=== PATIENT | male | born 1975 | race Caucasian/White ===

== ENCOUNTER → 2018-07-30 | Outpatient (CLI) | payer OTHER ==
--- NOTE | 2018-07-30 09:51 | RAD ---
TESTICULAR/SCROTUM History: Right testicular swelling Comparison: None. Findings: Multiple sonographic images of the testicles and scrotum are submitted to include grayscale, color, spectral analysis waveform images. Right testicle measured 4.8 x 2.8 x 2.3 cm. Left testicle measured 4.7 x 3.1 x 2.4 cm. No intratesticular mass is demonstrated on either side. There is normal low resistance vascularity of interrogated intratesticular vessels bilaterally. There are small hydroceles bilaterally. No asymmetric hypervascularity is demonstrated. Impression: 1. There are small hydroceles bilaterally. There is no evidence of testicular torsion or intratesticular mass. Electronically signed by: Naldo Alex MD (07/30/2018 9:48 AM) [id number]
== END | disposition home or self-care (01) ==
LOC: US 07:13
PROVIDERS: ATTEND Internal Medicine
DX: N43.3 Hydrocele, unspecified (principal)
CPT/HCPCS: 76870

== ENCOUNTER 2019-08-20 20:19 | Emergency (ER) | payer OTHER ==
[~2019-08-20] VITALS: Ht 177.8 cm; Wt 117.9 kg
[2019-08-20] MEDS ORDERED: DIPH,PERTUSS(ACELL),TET VAC/PF 0.5 ML SYRINGE. VAX IM ONE ×2 (22:42→22:45)
--- NOTE | 2019-08-20 22:53 | PHYS DOC ---
Past Medical History Past Medical History: No Pertinent History Past Surgical History: No Surgical History Smoking Status: Current Every Day Smoker Alcohol Use: Occasionally General Adult EDM: Chief Complaint: FINGER INJURY HPI: HPI: Patient is a 44 year old male who presents with injury to his left index finger. Patient states that he was cutting with his pocket knife when he accidentally cut the dorsal aspect of his left index finger. Patient states that initially it bled quite a bit. He states that he ran it under cold water for a while and then used peroxide on it and then cleaned it up and then apply pressure to the wound. Patient states that after applying pressure he has had no further bleeding. He states that he has minimal pain and has full sensation distal to the wound. He indicates that his last tetanus shot was around 9 years ago.[] Review of Systems: Review of Systems: Constitutional: Denies fever or chills. [] Respiratory: Denies cough or shortness of breath. [] Cardiovascular: Denies chest pain or edema. [] Musculoskeletal: Positive laceration. [] Heart Score: Risk Factors: Risk Factors: DM, Current or recent (<one month) smoker, HTN, HLP, family history of CAD, obesity. Risk Scores: Score 0 - 3: 2.5% MACE over next 6 weeks - Discharge Home Score 4 - 6: 20.3% MACE over next 6 weeks - Admit for Clinical Observation Score 7 - 10: 72.7% MACE over next 6 weeks - Early Invasive Strategies Current Medications: Current Medications Medications (Trade) Dose Ordered Sig/Jade Start Time Stop Time Status Last Admin Dose Admin Diphtheria/ Tetanus/Acell Pertussis (ADACEL TDap SYRINGE) 0.5 ml ONCE ONCE 08/20/19 22:45 08/20/19 22:46 UNV 08/20/19 22:45 0.5 ML Physical Exam: PE: Constitutional: Well developed, well nourished, no acute distress, non-toxic appearance. [] Cardiovascular: Regular rate and rhythm[] Lungs & Thorax: Bilateral breath sounds clear to auscultation [] Skin: There is a 1.5 cm linear laceration noted to the dorsal aspect of the left index finger at the PIP region. No active bleeding is noted. Finger is neurovascularly intact distal to the wound. [] Current Patient Data: Vital Signs: Vital Signs Date Time Temp Pulse Resp B/P (MAP) Pulse Ox O2 Delivery O2 Flow Rate FiO2 08/20/19 21:00 97.7 87 16 97 Room Air 97.7 EKG: EKG: [] Radiology/Procedures: Radiology/Procedures: [] Course & Med Decision Making: Course & Med Decision Making Pertinent Labs and Imaging studies reviewed. (See chart for details) Laceration Repair by me: Anesthesia: None Location: Dorsal aspect of left index finger Tendon/Joint/Nerves: No injury Foreign body: None detected after copious irrigation and exploration Technique: Dermabond utilized for wound closure Complexity: No subcutaneous sutures/mucosal repair/edge excision Post Closure Length: 1.5 cm Patient's bleeding was easily controlled in the department and there is no indication of anemia. No evidence of compartment syndrome, neurologic injury, vascular injury, open joint, tendon laceration, or foreign body. Patient is appropriate for outpatient follow up. Finger was placed in aluminum finger splint for stability of wound. Dragon Disclaimer: Dragon Disclaimer: This electronic medical record was generated, in whole or in part, using a voice recognition dictation system. Departure Departure Impression: Primary Impression: Laceration of left index finger Qualified Codes: S61.211A - Laceration without foreign body of left index finger without damage to nail, initial encounter Disposition: HOME, SELF-CARE Condition: STABLE Referrals: PASQUALE DYE MD (PCP) Patient Instructions: Laceration Care, Adult JEANNE MENDEZ Jr. DO Aug 20, 2019 22:53
== END 2019-08-20 22:58 | disposition home or self-care (01) ==
LOC: ER 20:19
DX: S61.211A Laceration without foreign body of left index finger without damage to nail, initial encounter (principal); F17.200 Nicotine dependence, unspecified, uncomplicated; W26.0XXA Contact with knife, initial encounter; Y93.89 Activity, other specified; Y92.89 Other specified places as the place of occurrence of the external cause; Y99.8 Other external cause status
CPT/HCPCS: 12001; 90471; 90715; 99283